=== PATIENT | male | born 1965 | race African-American/Black ===

== ENCOUNTER 2017-06-04 09:29 | Day surgery (SDC) | payer OTHER ==
[2017-05-29 11:01] LABS: HEMOGLOBIN 14.9 g/dL (13.5-17.0); HGB HCT DIFFERENCE -0.3; MEAN CORPUSCULAR HEMOGLOBIN 26.5 pg (27.0-33.4); MEAN CORPUSCULAR HGB CONC 33.2 g/dL (32.0-36.0); MEAN CORPUSCULAR VOLUME 80 fl (80-97); RED BLOOD COUNT 5.63 10^6/uL (4.35-5.55); RED CELL DISTRIBUTION WIDTH 15.2 % (11.5-14.0); WHITE BLOOD COUNT 4.9 10^3/uL (4.0-10.5)
[2017-05-29 11:10] LABS: ANION GAP 14 (5-19); BLOOD UREA NITROGEN 9 mg/dL (7-20); CALCIUM 9.9 mg/dL (8.4-10.2); CARBON DIOXIDE 29 mmol/L (22-30); CHLORIDE 101 mmol/L (98-107); CREATININE RESULT 1.09 mg/dL (0.52-1.25); GLUCOSE 100 mg/dL (75-110); POTASSIUM 4.4 mmol/L (3.6-5.0); SODIUM 144.4 mmol/L (137-145)
--- NOTE | 2017-05-29 21:39 | EKG REPORT ---
SEVERITY:- ABNORMAL ECG - SINUS RHYTHM BORDERLINE LEFT AXIS DEVIATION NONSPECIFIC T ABNORMALITIES, INFERIOR LEADS : Confirmed by: Andrea Kwok 29-May-2017 21:38:39
[~2017-06-04 09:29] MED LIST: DEXTROSE 5%-LACTATED RINGERS 1,000 ML IV PRN; LACTATED RINGERS 1000 ML IV PRN; METRONIDAZOLE 500 MG/NS RTU 100 ML IV PRN
[2017-06-04] MEDS ORDERED: MIDAZOLAM 2 MG/2 ML INJ IV ONE (10:15)
[2017-06-04] MEDS ORDERED: RINGERS SOLUTION,LACTATED 1,000 ML IV ONE (10:15)
[2017-06-04] MEDS ORDERED: MIDAZOLAM 2 MG/2 ML INJ ONE (11:49)
[2017-06-04] MEDS ORDERED: FENTANYL CITRATE INJ/PF 100 MCG/2 ML AMPUL ONE (11:49)
[2017-06-04] MEDS ORDERED: PROPOFOL INJ 200 MG/20 ML VIAL IV ONE ×2 (11:50)
[2017-06-04] MEDS ORDERED: BUPIVACAINE INJ/PF LIPOSOME/PF 266 MG/20 ML SDV ONE (12:21)
[2017-06-04] MEDS ORDERED: BUPIVACAINE HCL 0.25% /EPINEPHRINE INJ/PF 30 ML SDV ONE (12:21)
[2017-06-04] MEDS ORDERED: MORPHINE SULFATE 10 MG/ML INJ IV PRN (12:28)
[2017-06-04] MEDS ORDERED: MEPERIDINE HCL/PF INJ 25 MG/1 ML DISP.SYRIN IV PRN (12:28)
[2017-06-04] MEDS ORDERED: PROMETHAZINE HCL INJ 25 MG/1 ML VIAL IV PRN ×2 (12:28)
[2017-06-04] MEDS ORDERED: OXYCODONE-ACETAMINOPHEN 5-325 MG TABLET PO PRN ×3 (12:28→13:29)
[2017-06-04] MEDS ORDERED: FENTANYL CITRATE INJ/PF 100 MCG/2 ML AMPUL IV PRN ×3 (12:28)
[2017-06-04] MEDS ORDERED: DIPHENHYDRAMINE HCL 50 MG/ML VIAL IV PRN (12:28)
[2017-06-04] MEDS ORDERED: ONDANSETRON HCL INJ/PF 4 MG/2 ML SDV IV PRN (13:28)
--- NOTE | 2017-06-04 13:28 | PDOC DISCHARGE SUMMARY ---
Discharge Summary (SDC) - Discharge Final Diagnosis: HEMORRHOIDS Date of Surgery: 06/04/17 Discharge Date: 06/04/17 Condition: Stable Treatment or Instructions: [facility] [address] [place] [id number] Hemorrhoid or Anal Surgery Discharge Instructions 1. General Information: a. DO NOT DRIVE a car or operate dangerous machinery for 4-7 days or while taking narcotic prescription pain pills. b. DO NOT consume alcohol, tranquilizers, sleeping medications or any non- prescribed medications for 24 hours unless approved by your doctor or as long as taking narcotic prescription medications. c. DO NOT make important decisions or sign any important papers for the next 24 hours. d. Have a responsible person with you tonight. 2. Activity Restrictions: 4 weeks. a. Avoid heavy lifting or straining until you feel more comfortable. b. It is fine to go for walks, up and down steps, ride in a car. 3. Treatment: a. Remove tape and gauze 12 hours after surgery or before first bowel movement. There is packing in your anal canal that will come out on its own, most likely during a bowel movement. Tomorrow morning begin warm water sitz baths (soaks) with plain water. You may do 3-4 times per day or after bowel movements to help relieve spasm and pain. Place a dry gauze or panty liner over the sight to catch drainage and blood to help keep your clothing dry. b. You may use Tucks or other medicated wipes to help clean the area as needed. c. If packing used it will pass spontaneously with bowel function. External dressings and medicated gauze should be removed before sitz baths. 4. Medications: a. You may take the prescription tablets for pain one tablet every 6 hours. (_ Toradol__). b. Stop the narcotic when able since you cannot take it and drive and they cause constipation. You may switch to plain Tylenol, Advil or Aleve as you transition from the narcotic. Many adults find good pain relief with Advil 600- 800 mg three times a day with meals for short courses. This can cause indigestion, ulcers, and kidney problems with long-term use. c. Resume all normal medications unless a change is specified by your doctors. d. Stool softeners are encouraged to help you for 2-4 weeks to maintain a soft stool and avoid more painful bowel movements due to pain medication. Colace is often used. e. A numbing cream may be prescribed, this can be applied after sitz baths around the perianal area before the sight is covered with a gauze pad. f. Constipation is very common after anal surgery and you may take over-the- counter medications to help stimulate the bowel such as Milk of Magnesia, Senokot tablets, prune juice and drink plenty of water. 5. Diet: a. Begin with clear liquids and if you do well you may then advance to normal foods low in fat and protein at first. Smaller portion size may be hough the first night. b. Acidic (orange juice, tomato), foods high in ruffage (grapes, celery, asparagus) and spicy foods should be avoided for comfort the first 2-3 weeks since they can cause more burning sensation with bowel movements. 6..Follow Up Care: a. Please call the office to schedule a follow up appointment with your doctor for 2 weeks. In the event of any postoperative problems or questions or you may call the office during business hours or the On-Call physician evenings and weekends at [facility]. [facility] I understand the instructions for my postoperative care as described above and a copy has been given to me. Patient/Significant Other Witness Date Prescriptions: Ketorolac Tromethamine [Toradol 10 mg Tablet] 10 mg PO Q6HP PRN #25 tablet PRN Reason: Referrals: CARRIE SALGADO MD [Primary Care Provider] - Discharge Diet: Other (Comments) - CLEAR LIQUIDS FOR 24 HOURS AFTER SURGERY. THEN YOU MAY RESUME REGULAR DIET Discharge Activity: No Lifting/Push/Pulling Report the Following to Your Physician Immediately: Nausea, Vomiting, Fever over 101 Degrees, Drainage-Foul Smelling
[2017-06-04 15:55] VITALS: BP 145/94
--- NOTE | 2017-06-27 16:33 | OPERATIVE REPORT E ---
Operative Report NAME: MIS TYLER : 1965 AGE: 51Y DATE OF SURGERY: 06/04/2017 ROOM: PREOPERATIVE DIAGNOSIS: EXTERNAL AND INTERNAL HEMORRHOIDS. POSTOPERATIVE DIAGNOSIS: EXTERNAL AND INTERNAL HEMORRHOIDS. OPERATIONS: 1. Exam under anesthesia. 2. Three-compartment hemorrhoidectomy. SURGEON: ELISEO CHAVEZ M.D. ANESTHESIA: Spinal. COMPLICATIONS: None. ESTIMATED BLOOD LOSS: 40 mL. DRAINS: None. TISSUE REMOVED OR ALTERED: Left, right and posterior hemorrhoids. FINDINGS: See below. PROCEDURE: Patient brought from preop holding area to the main operating room, where spinal anesthesia was induced. He was placed in the prone jackknife position, buttocks spread, taped widely, prepped and draped in a sterile fashion. Instrumentation set up for open 3-compartment hemorrhoidectomy. Surgical plan and surgical timeout were conducted. Findings were significant for external and internal hemorrhoids in the right anterior position, central posterior position and left lateral position. The posterior hemorrhoid was the largest, with some excoriated tissue. We numbed up the perianal tissue with 0.25% Marcaine 20 mL. Anal canal was gingerly dilated up to accommodate 3 fingers, and then a bullet anoscope inserted. We approached the posterior hemorrhoid first. A 4-0 chromic suture was placed at the apex of the hemorrhoid, in the rectal canal. The hemorrhoid was excised using a 15 blade, then Metzenbaum scissors. Mucosal and perianal flaps were elevated minimally to provide access to all of the venous complex that was accessible. Hemorrhoid was sent as posterior hemorrhoid to pathology. Mucosa and perianal tissue closed using the 4-0 chromic in a running continuous fashion. The identical procedure was performed for the hemorrhoid in the patient's left lateral position and the right lateral position. Bleeding was minimal. There was no hematoma encountered at the conclusion of the operation. We did inject full-strength Exparel around the perianal subcutaneous tissue, and Gelfoam plug rolled into position and tucked in the anal canal for added hemostasis. Patient tolerated procedure well. He was awakened and taken to the recovery room in stable condition. DICTATING PHYSICIAN: ELISEO CHAVEZ M.D. [id number] Y#: [id number] ID: [id number] JOB#: [id number] ACCT: [id number] cc:ELISEO CHAVEZ M.D. >
== END 2017-06-04 15:35 | disposition home or self-care (01) ==
LOC: OROUT 09:29
PROVIDERS: ATTEND Surgery
PROC: 06BY0ZC Excision of Hemorrhoidal Plexus, Open Approach (ICD-10-PCS; principal; 2017-06-04 11:30)
DX: K64.4 Residual hemorrhoidal skin tags (principal); I10 Essential (primary) hypertension; Z79.899 Other long term (current) drug therapy; K64.8 Other hemorrhoids
CPT/HCPCS: 93005; 36415; 85027; 80048; 88304 ×2; 93010; 46260; J2250; J3490; J3010; J2704; C9290; 902